=== PATIENT | male | born 1960 | race African-American/Black ===

== ENCOUNTER 2018-04-25 10:05 | Inpatient (IN) | payer OTHER ==
[2018-04-25] VITALS (14 sets, daily range): BP systolic 105–143; BP diastolic 51–79
[~2018-04-25] VITALS: Ht 175.3 cm; Wt 71.8 kg
--- NOTE | ~2018-04-25 | O ---
[facility] [place] [address] OPERATIVE REPORT Name: KAPIL GABRIEL Room #: 432[facility] M.R.#: [id number] Admission: 04/25/18 Attend Phys: Wisam Vidales MD Discharge: 05/03/18 Date of : 62 Report #: [id number] THIS REPORT FOR: //name// CC: CECY physician/PCP Wisam Vidales DATE OF SERVICE: 05/01/2018 SURGEON: Dr. Saeed Anderson. PREOPERATIVE DIAGNOSES: Dysphagia, aspiration. POSTOPERATIVE DIAGNOSES: See below. ANESTHESIA USED: See anesthesia notes. NAME OF PROCEDURE PERFORMED: 1. Esophagogastroduodenoscopy with biopsy. 2. Abdul dilation as described. INDICATION FOR PROCEDURE: As above. FINDINGS: 1. Schatzki's ring. 2. Hiatal hernia. 3. Otherwise, normal upper endoscopy. DESCRIPTION OF PROCEDURE: The risks and benefits of the procedure were explained in detail prior to monitored anesthesia. The patient was placed in the left lateral decubitus position and the tip of the Olympus video endoscope was advanced into the oropharynx, esophagus, stomach, and to the third portion of the duodenum. A close inspection of the upper gastrointestinal mucosa was obtained upon slow withdrawal of the endoscope. The duodenum was normal in appearance without evidence of erosion or ulceration. The pylorus was patent without evidence of obstruction. Gastric antrum and gastric body were normal in appearance. Retroflexion allowed close inspection of the cardia and the fundus, which revealed a GE junction approximately 35 cm from the incisors, a small hiatal hernia and a Schatzki's ring. This was mild. The distal esophagus was normal otherwise. Biopsies were obtained midesophageal to rule out eosinophilic esophagitis. Using standard technique, next, a 52-Ukrainian Abdul dilator was advanced into the distal esophagus without complication. The patient tolerated both procedures well and was discharged to recovery. IMPRESSION: 1. Schatzki's ring. 2. Hiatal hernia. [facility] [address] [place] [address] OPERATIVE REPORT Name: KAPIL GABRIEL BISHOP Room #: 432-[facility] ..#: [id number] Admission: 04/25/18 Attend Phys: Wisam Vidales MD Discharge: 05/03/18 Date of : 62 Report #: [id number]. Otherwise, normal upper endoscopy. PLAN: Proceed with swallow study via video swallow. <ELECTRONICALLY SIGNED> By: Zak Elias MD 05/03/18 1727 1110 1237 Saeed Anderson MD /nt
--- NOTE | ~2018-04-25 | PATH ---
[facility] [place] [address] PATHOLOGY RPT PROCEDURE Name: RODNEY FOREMANDuarte ALAS Room #: 432-P DIS IN M.R.#: [id number] Admission: 04/25/18 Date of : 62 Discharge: 05/03/18 Report #: [id number] Path Case #: [id number] L[facility] Accession Number: [id number] . 01 Material submitted: . ESOPHAGEAL BX . 01 Clinical history: . Pre-op diagnosis: N/V, dysphagia, hematemesis Post-op diagnosis: Esophagitis R/O eosinophilic esophagitis . 02 Diagnosis: Gastroesophageal mucosa, esophageal R/O eosinophilic esophagitis, endoscopic biopsy: - Mild esophagitis. - No increase in intraepithelial eosinophils. - Columnar gastric-type mucosa showing mild chronic inflammation. - Negative for intestinal metaplasia or dysplasia. (IUV:elina; 05/04/2018) QMS/05/04/2018 . 02 Electronically signed: . Fatmata Dickinson MD, Pathologist NPI- [id number] . 01 Gross description: . The specimen is received in formalin, labeled "Kapil Foreman, esophageal biopsy, R/O eosinophilic esophagitis". Received are three segments of pale kellogg soft tissue ranging in size from 0.3 to 0.7 cm in maximum dimensions. The specimen is submitted entirely in cassette A1. (CAA; 05/03/2018) QAC/QAC . 02 Pathologist provided ICD-10: K20.9, K29.50 . 02 CPT . 956632 Specimen Comment: A courtesy copy of this report has been sent to Specimen Comment: [phone], . Specimen Comment: Report sent to and Performed at: [address] [id number] MD Harshal Lei MD Phone: [phone] Performed at: [address] [address] [place] [address] PATHOLOGY RPT PROCEDURE Name: RODNEY FOERMANDuarte ALAS Room #: 432-P DIS IN M.R.#: [id number] Admission: 04/25/18 Date of : 62 Discharge: 05/03/18 Report #: [id number] Path Case #: [id number] [facility], [place] [id number] MD Fatmata Dickinson MD Phone: [phone]
[~2018-04-25 10:05] MED LIST: KLOR-CON 1010 MEQ PO; LANTUS100 UNIT/M SUBQ; LISINOPRIL20 MG PO; NEXIUM40 MG PO; NOVOLOG100 UNIT/M SUBQ; PHENERGAN 25 MG25 M1 PO
[2018-04-25] MEDS ORDERED: KEFLEX500 M1 PO (10:15)
[2018-04-25] MEDS ORDERED: ZANTAC 150MG T150 MG PO (10:16)
[2018-04-25] MEDS ORDERED: PROTONIX40 M1 PO (10:16)
[2018-04-25] MEDS ORDERED: FLOMAX0.4 MG PO (10:16)
[2018-04-25] MEDS ORDERED: ULTRAM 50MG TAB50 MG PO (10:17)
[2018-04-25] MEDS ORDERED: TYLENOL EXTRA500 MG PO (10:18)
[2018-04-25] MEDS ORDERED: ONDANSETRON HCL4 M2 PO (10:18)
[2018-04-25] MEDS ORDERED: VITAMIN D1000 UNI1 PO (10:19)
[2018-04-25] MEDS ORDERED: ASPIR 8181 MG PO (10:19)
[2018-04-25] MEDS ORDERED: CYCLOBENZAPRINE5 MG PO (10:20)
[2018-04-25] MEDS ORDERED: PROSCAR 5MG TABL5 MG PO (10:20)
[2018-04-25] MEDS ORDERED: LYRICA 75 MG CA75 MG PO (10:21)
[2018-04-25] MEDS ORDERED: ATORVASTATIN CA40 MG PO (10:21)
[2018-04-25 10:46] LABS: URINE BILIRUBIN NEGATIVE (Negative); URINE BLOOD NEGATIVE (Negative); URINE CLARITY CLEAR; URINE COLOR YELLOW; URINE GLUCOSE-RANDOM* 3+ (Negative); URINE KETONES 3+ (Negative); URINE LEUKOCYTES-REFLEX NEGATIVE (Negative); URINE NITRITE-REFLEX NEGATIVE (Negative); URINE PROTEIN (DIPSTICK) NEGATIVE (Negative); URINE SPECIFIC GRAVITY 1.015 (1.005-1.035); URINE UROBILINOGEN 0.2 E.U./dl (0.2-1.0)
[2018-04-25 10:57] LABS: ABSOLUTE NEUTROPHILS 12.9 thou/uL (1.4-8.2); BASOPHILS 0.7 % (0.0-2.0); EOSINOPHILS 0.1 % (0.0-3.0); HEMOGLOBIN 12.7 gm/dL (14.0-18.0); MCH 26.6 pg (26.0-34.0); MCV 85.7 fL (80.0-100.0); MONOCYTES 4.7 % (1.0-8.0); PLATELET COUNT 264 thou/uL (150-400); POLYS 85.5 % (36.0-66.0); RBC 4.78 mil/uL (4.50-6.00); RDW 17.6 % (10.5-14.5); WBC 15.1 thou/uL (4.0-11.0)
[2018-04-25 10:59] LABS: CALCIUM 9.3 mg/dL (8.5-10.1); POTASSIUM 5.9 mmol/L (3.5-5.1)
[2018-04-25 11:02] LABS: ALBUMIN 3.8 g/dL (3.4-5.0); DIRECT BILIRUBIN 0.2 mg/dL (<0.1-0.3); TOTAL BILIRUBIN 0.8 mg/dL (<0.1-1.0); TOTAL PROTEIN 7.8 g/dL (6.4-8.2)
[2018-04-25 12:32] LABS: BE(vivo) -21.3 mmol/L (-2 to +3); HCO3 6.4 mmol/L (22.0-26.0); PO2 111.9 mmHg (80.0-100.0); sO2 96.5 % (92.0-98.0)
[2018-04-25 12:33] LABS: PCO2 20.9 mmHg (35.0-45.0); pH 7.106 (7.360-7.450)
[2018-04-25 12:36] LABS: PHOSPHORUS 5.7 mg/dL (2.5-4.9)
[2018-04-25 12:37] LABS: ALBUMIN 3.9 g/dL (3.4-5.0); CALCIUM 9.5 mg/dL (8.5-10.1); PHOSPHORUS 5.6 mg/dL (2.5-4.9); POTASSIUM 5.9 mmol/L (3.5-5.1)
[2018-04-25 15:44] LABS: ALBUMIN 3.9 g/dL (3.4-5.0); CALCIUM 9.2 mg/dL (8.5-10.1); CREATININE 2.1 mg/dL (0.7-1.3); PHOSPHORUS 5.6 mg/dL (2.5-4.9); POTASSIUM 5.1 mmol/L (3.5-5.1)
[2018-04-25 19:33] LABS: ALBUMIN 3.5 g/dL (3.4-5.0); CREATININE 1.9 mg/dL (0.7-1.3); MAGNESIUM 2.2 mg/dL (1.8-2.4); PHOSPHORUS 2.7 mg/dL (2.5-4.9)
[2018-04-25 19:37] LABS: POTASSIUM 4.1 mmol/L (3.5-5.1)
[2018-04-25 23:25] LABS: ALBUMIN 3.5 g/dL (3.4-5.0); CALCIUM 8.9 mg/dL (8.5-10.1); CREATININE 1.5 mg/dL (0.7-1.3); PHOSPHORUS 3.2 mg/dL (2.5-4.9); POTASSIUM 4.3 mmol/L (3.5-5.1)
[2018-04-26] VITALS (13 sets, daily range): BP systolic 107–135; BP diastolic 51–86
[2018-04-26 05:22] LABS: ALBUMIN 3.3 g/dL (3.4-5.0); CALCIUM 8.3 mg/dL (8.5-10.1); CREATININE 1.3 mg/dL (0.7-1.3); MAGNESIUM 1.9 mg/dL (1.8-2.4); PHOSPHORUS 2.7 mg/dL (2.5-4.9); POTASSIUM 4.4 mmol/L (3.5-5.1)
[2018-04-26 05:46] LABS: HEMATOCRIT 37.9 % (42.0-52.0); HEMOGLOBIN 12.1 gm/dL (14.0-18.0); MCH 25.8 pg (26.0-34.0); MCHC 31.9 g/dL (28.0-37.0); RBC 4.68 mil/uL (4.50-6.00); RDW 16.7 % (10.5-14.5); WBC 12.8 thou/uL (4.0-11.0)
[2018-04-27] VITALS (7 sets, daily range): BP systolic 117–154; BP diastolic 72–97
[2018-04-27 06:39] LABS: ABSOLUTE NEUTROPHILS 3.4 thou/uL (1.4-8.2); BASOPHILS 1.2 % (0.0-2.0); EOSINOPHILS 0.5 % (0.0-3.0); HEMATOCRIT 34.7 % (42.0-52.0); HEMOGLOBIN 11.6 gm/dL (14.0-18.0); LYMPHOCYTES 25.6 % (24.0-44.0); MCH 26.6 pg (26.0-34.0); MCHC 33.4 g/dL (28.0-37.0); MCV 79.4 fL (80.0-100.0); MONOCYTES 9.3 % (1.0-8.0); PLATELET COUNT 207 thou/uL (150-400); POLYS 63.4 % (36.0-66.0); RBC 4.38 mil/uL (4.50-6.00); RDW 16.8 % (10.5-14.5); WBC 5.4 thou/uL (4.0-11.0)
[2018-04-27 07:01] LABS: ALBUMIN 2.9 g/dL (3.4-5.0); CALCIUM 8.5 mg/dL (8.5-10.1); CREATININE 1.1 mg/dL (0.7-1.3); MAGNESIUM 1.7 mg/dL (1.8-2.4); POTASSIUM 4.3 mmol/L (3.5-5.1); TOTAL BILIRUBIN 0.6 mg/dL (<0.1-1.0); TOTAL PROTEIN 6.2 g/dL (6.4-8.2)
[2018-04-28 04:15] VITALS: BP 150/101
[2018-04-28 07:12] VITALS: BP 131/81
[2018-04-28 09:31] LABS: HEMATOCRIT 35.8 % (42.0-52.0); HEMOGLOBIN 11.9 gm/dL (14.0-18.0); MCH 26.7 pg (26.0-34.0); MCHC 33.2 g/dL (28.0-37.0); MCV 80.5 fL (80.0-100.0); RBC 4.44 mil/uL (4.50-6.00); RDW 16.3 % (10.5-14.5); WBC 3.7 thou/uL (4.0-11.0)
[2018-04-28 09:55] LABS: CALCIUM 9.3 mg/dL (8.5-10.1); CREATININE 1.1 mg/dL (0.7-1.3); TOTAL BILIRUBIN 0.4 mg/dL (<0.1-1.0); TOTAL PROTEIN 6.4 g/dL (6.4-8.2)
[2018-04-28 15:23] VITALS: BP 131/81
[2018-04-28 15:52] VITALS: BP 91/62
[2018-04-28 20:05] VITALS: BP 119/86
[2018-04-29] VITALS (8 sets, daily range): BP systolic 72–153; BP diastolic 51–93
[2018-04-29 05:39] LABS: CALCIUM 9.4 mg/dL (8.5-10.1); CREATININE 0.9 mg/dL (0.7-1.3); MAGNESIUM 1.9 mg/dL (1.8-2.4)
[2018-04-29 05:55] LABS: POTASSIUM 5.6 mmol/L (3.5-5.1)
[2018-04-29 06:49] LABS: HEMATOCRIT 38.8 % (42.0-52.0); HEMOGLOBIN 12.8 gm/dL (14.0-18.0); MCH 26.1 pg (26.0-34.0); MCHC 33.1 g/dL (28.0-37.0); RBC 4.91 mil/uL (4.50-6.00); WBC 4.8 thou/uL (4.0-11.0)
[2018-04-29 18:08] LABS: % SATURATION 21 % (20-39); IRON 53 ug/dL (65-175); TIBC 253 ug/dL (250-450)
[2018-04-29 18:35] LABS: FOLIC ACID 12.9 ng/mL (8.6-58.9)
[2018-04-30 03:50] VITALS: BP 104/67
[2018-04-30 05:49] LABS: HEMATOCRIT 35.4 % (42.0-52.0); HEMOGLOBIN 11.9 gm/dL (14.0-18.0); MCH 26.6 pg (26.0-34.0); MCHC 33.5 g/dL (28.0-37.0); MCV 79.2 fL (80.0-100.0); RBC 4.47 mil/uL (4.50-6.00); RDW 16.2 % (10.5-14.5); WBC 4.6 thou/uL (4.0-11.0)
[2018-04-30 06:02] LABS: CREATININE 1.2 mg/dL (0.7-1.3); POTASSIUM 4.3 mmol/L (3.5-5.1)
[2018-04-30 07:05] VITALS: BP 107/74
[2018-04-30 11:32] VITALS: BP 107/74
[2018-04-30 11:51] VITALS: BP 110/71
[2018-04-30 15:16] VITALS: BP 117/87
[2018-04-30 20:05] VITALS: BP 144/88
[2018-05-01 04:44] VITALS: BP 124/75
[2018-05-01 06:35] LABS: HEMOGLOBIN 11.5 gm/dL (14.0-18.0); MCH 26.2 pg (26.0-34.0); MCHC 32.9 g/dL (28.0-37.0); MCV 79.8 fL (80.0-100.0); RBC 4.39 mil/uL (4.50-6.00); RDW 16.4 % (10.5-14.5); WBC 9.2 thou/uL (4.0-11.0)
[2018-05-01 06:44] LABS: MAGNESIUM 1.9 mg/dL (1.8-2.4); POTASSIUM 4.2 mmol/L (3.5-5.1)
[2018-05-01 07:35] VITALS: BP 100/68
[2018-05-01 15:40] VITALS: BP 141/88
[2018-05-02 06:25] LABS: CALCIUM 9.3 mg/dL (8.5-10.1); HEMOGLOBIN 11.7 gm/dL (14.0-18.0); MAGNESIUM 1.8 mg/dL (1.8-2.4); MCHC 32.6 g/dL (28.0-37.0); POTASSIUM 4.7 mmol/L (3.5-5.1); RBC 4.5 mil/uL (4.50-6.00); RDW 16.1 % (10.5-14.5); WBC 7.3 thou/uL (4.0-11.0)
[2018-05-02 07:47] VITALS: BP 113/62
[2018-05-02 16:21] VITALS: BP 110/69
[2018-05-02 20:21] VITALS: BP 108/70
[2018-05-03 04:35] VITALS: BP 149/87
[2018-05-03] MEDS ORDERED: LANTUS100 UNIT/M SUBQ (15:01)
[2018-05-03] MEDS ORDERED: LISINOPRIL5 MG PO (15:03)
== END 2018-05-03 16:48 | DRG 682 ==
LOC: ER 10:05 → EROBS 11:24 → ICU 11:24 → 4E 04-27 18:11
PROVIDERS: Emergency Medicine; Hospitalist; Internal Medicine
PROC: 0DB28ZX Excision of Middle Esophagus, Via Natural or Artificial Opening Endoscopic, Diagnostic (ICD-10-PCS; principal; 2018-05-01)
PROC: 0D738ZZ Dilation of Lower Esophagus, Via Natural or Artificial Opening Endoscopic (ICD-10-PCS; 2018-05-01)
DX: N17.9 Acute kidney failure, unspecified (principal); E10.10 Type 1 diabetes mellitus with ketoacidosis without coma; K21.9 Gastro-esophageal reflux disease without esophagitis; I10 Essential (primary) hypertension; F17.210 Nicotine dependence, cigarettes, uncomplicated; K22.2 Esophageal obstruction; K44.9 Diaphragmatic hernia without obstruction or gangrene; R13.10 Dysphagia, unspecified; E78.5 Hyperlipidemia, unspecified; D72.829 Elevated white blood cell count, unspecified; I95.9 Hypotension, unspecified; E10.40 Type 1 diabetes mellitus with diabetic neuropathy, unspecified; Z79.899 Other long term (current) drug therapy; Z79.4 Long term (current) use of insulin; Z88.0 Allergy status to penicillin; Z85.51 Personal history of malignant neoplasm of bladder; Z79.82 Long term (current) use of aspirin
CPT/HCPCS: 10078; 10783; 62110; 62900

== ENCOUNTER 2018-05-14 22:05 | Emergency (ER) | payer OTHER ==
[~2018-05-14] VITALS: Ht 175.3 cm; Wt 72.6 kg
--- NOTE | ~2018-05-14 | EKG ---
[address] [address] ELECTROCARDIOGRAM REPORT Name: KAPIL GABRIEL [facility] [id number] Admission: 05/14/18 Attend Phys: Discharge: 05/15/18 Date of : 62 Report #: [id number] THIS REPORT FOR: //name// [facility] ED Test Date: 2018-05-14 Test Time: 22:24:04 Pat Name: KAPIL GABRIEL Department: Room: Gender: M Porcelain Technician: christopher : 1960 Requested By: Farhad Choi Order Number: [id number] MD: Vinnie Valenzuela Measurements Intervals [place] Rate: 90 P: 62 CT: 154 QRS: 37 QRSD: 80 T: -7 QT: 355 QTc: 435 Interpretive Statements Sinus rhythm Nonspecific ST and T wave abnormality No previous ECG available for comparison Electronically Signed On 05-15-2018 10:13:31 CDT by Vinnie Valenzuela [email or web address] <ELECTRONICALLY SIGNED> By: Vinnie Valenzuela MD, [facility] 05/15/18 1013 2224 222 Vinnie Valenzuela MD, FACC /EPI
[~2018-05-14 22:05] MED LIST changes: +ASPIR 8181 MG PO; +ATORVASTATIN CA40 MG PO; +CYCLOBENZAPRINE5 MG PO; +FLOMAX0.4 MG PO; +KEFLEX500 M1 PO; +LISINOPRIL5 MG PO; +LYRICA 75 MG CA75 MG PO; +ONDANSETRON HCL4 M2 PO; +PROSCAR 5MG TABL5 MG PO; +PROTONIX40 M1 PO; +TYLENOL EXTRA500 MG PO; +ULTRAM 50MG TAB50 MG PO; +VITAMIN D1000 UNI1 PO; +ZANTAC 150MG T150 MG PO
[2018-05-14 23:58] LABS: ABSOLUTE NEUTROPHILS 7.4 thou/uL (1.4-8.2); EOSINOPHILS 0.5 % (0.0-3.0); HEMATOCRIT 35.1 % (42.0-52.0); HEMOGLOBIN 11.7 gm/dL (14.0-18.0); LYMPHOCYTES 11.3 % (24.0-44.0); MCH 26.4 pg (26.0-34.0); MCHC 33.3 g/dL (28.0-37.0); MCV 79.3 fL (80.0-100.0); MONOCYTES 5.4 % (1.0-8.0); PLATELET COUNT 288 thou/uL (150-400); POLYS 81.8 % (36.0-66.0); RBC 4.43 mil/uL (4.50-6.00); RDW 16.5 % (10.5-14.5); WBC 9.1 thou/uL (4.0-11.0)
[2018-05-15 00:18] LABS: ANION GAP 7 mmol/L (7-16); BUN 7 mg/dL (7-18); CALCIUM 8.5 mg/dL (8.5-10.1); CHLORIDE 105 mmol/L (98-107); CO2 25 mmol/L (21-32); CREATININE 0.9 mg/dL (0.7-1.3); GLUCOSE 124 mg/dL (74-106); POTASSIUM 3.6 mmol/L (3.5-5.1); SODIUM 137 mmol/L (136-145)
[2018-05-15 00:26] LABS: TROPONIN-I <0.06 ng/mL (<0.06)
[2018-05-15 02:05] LABS: URINE BILIRUBIN NEGATIVE (Negative); URINE BLOOD TRACE (Negative); URINE CLARITY SL CLOUDY; URINE COLOR YELLOW; URINE GLUCOSE-RANDOM* NEGATIVE (Negative); URINE KETONES NEGATIVE (Negative); URINE NITRITE-REFLEX NEGATIVE (Negative); URINE PROTEIN (DIPSTICK) NEGATIVE (Negative); URINE SPECIFIC GRAVITY 1.025 (1.005-1.035); URINE UROBILINOGEN 0.2 E.U./dl (0.2-1.0)
[2018-05-15 02:07] LABS: URINE LEUKOCYTES-REFLEX 2+ (Negative)
[2018-05-15 02:16] LABS: BACTERIA-REFLEX >30 Many /HPF (None Seen); CASTS None Seen /LPF (None Seen); SQUAMOUS None Seen /LPF (0-3); URINE WBC-REFLEX >25 Many /HPF (0-5)
[2018-05-15 02:18] LABS: CALCIUM OXALATE 0-3 Few /LPF (None Seen); URINE RBC 0-2 Rare /HPF (0-2)
[2018-05-15] MEDS ORDERED: BACTRIM DS TAB1 EACH PO (02:24)
== END 2018-05-15 03:43 | disposition home or self-care (01) ==
LOC: ER 22:05
PROVIDERS: Physician Assistant
DX: E10.649 Type 1 diabetes mellitus with hypoglycemia without coma (principal); N39.0 Urinary tract infection, site not specified; F17.210 Nicotine dependence, cigarettes, uncomplicated; I10 Essential (primary) hypertension; K21.9 Gastro-esophageal reflux disease without esophagitis; E10.40 Type 1 diabetes mellitus with diabetic neuropathy, unspecified; Z88.0 Allergy status to penicillin

== ENCOUNTER 2018-05-17 23:07 | Emergency (ER) | payer OTHER ==
[~2018-05-17] VITALS: Ht 175.3 cm; Wt 71.2 kg
[~2018-05-17 23:07] MED LIST changes: +BACTRIM DS TAB1 EACH PO
[2018-05-17 23:40] LABS: URINE BILIRUBIN NEGATIVE (Negative); URINE BLOOD NEGATIVE (Negative); URINE CLARITY CLEAR; URINE COLOR YELLOW; URINE GLUCOSE-RANDOM* 3+ (Negative); URINE KETONES NEGATIVE (Negative); URINE LEUKOCYTES-REFLEX TRACE (Negative); URINE NITRITE-REFLEX POSITIVE (Negative); URINE PROTEIN (DIPSTICK) NEGATIVE (Negative); URINE UROBILINOGEN 0.2 E.U./dl (0.2-1.0)
[2018-05-17 23:46] LABS: HEMATOCRIT 36.2 % (42.0-52.0); HEMOGLOBIN 11.8 gm/dL (14.0-18.0); MCH 26.1 pg (26.0-34.0); MCHC 32.5 g/dL (28.0-37.0); MCV 80.3 fL (80.0-100.0); RBC 4.51 mil/uL (4.50-6.00); RDW 16.7 % (10.5-14.5); WBC 4.2 thou/uL (4.0-11.0)
[2018-05-17 23:47] LABS: CALCIUM 9.5 mg/dL (8.5-10.1); CREATININE 1.2 mg/dL (0.7-1.3); POTASSIUM 3.4 mmol/L (3.5-5.1)
== END 2018-05-18 02:17 | disposition home or self-care (01) ==
LOC: ER 23:07
PROVIDERS: Emergency Medicine
DX: E11.649 Type 2 diabetes mellitus with hypoglycemia without coma (principal); F10.129 Alcohol abuse with intoxication, unspecified; T38.3X5A Adverse effect of insulin and oral hypoglycemic [antidiabetic] drugs, initial encounter; F17.210 Nicotine dependence, cigarettes, uncomplicated; I10 Essential (primary) hypertension; E11.40 Type 2 diabetes mellitus with diabetic neuropathy, unspecified; K21.9 Gastro-esophageal reflux disease without esophagitis; Z79.4 Long term (current) use of insulin; Z88.0 Allergy status to penicillin; Y90.0 Blood alcohol level of less than 20 mg/100 ml; Y92.89 Other specified places as the place of occurrence of the external cause

== ENCOUNTER 2018-07-10 19:13 | Emergency (ER) | payer OTHER ==
[~2018-07-10] VITALS: Ht 154.9 cm; Wt 73.0 kg
[2018-07-10 21:58] VITALS: BP 124/73
== END 2018-07-10 22:01 | disposition home or self-care (01) ==
LOC: ER 19:13
DX: E10.649 Type 1 diabetes mellitus with hypoglycemia without coma (principal); M79.601 Pain in right arm; M79.602 Pain in left arm; M79.604 Pain in right leg; M79.605 Pain in left leg; R51 Headache; E10.40 Type 1 diabetes mellitus with diabetic neuropathy, unspecified; I10 Essential (primary) hypertension; K21.9 Gastro-esophageal reflux disease without esophagitis; N40.0 Benign prostatic hyperplasia without lower urinary tract symptoms; G89.29 Other chronic pain; F17.210 Nicotine dependence, cigarettes, uncomplicated; Z88.0 Allergy status to penicillin; W18.30XA Fall on same level, unspecified, initial encounter; Y93.89 Activity, other specified; Y92.89 Other specified places as the place of occurrence of the external cause; Y99.8 Other external cause status

== ENCOUNTER 2018-08-16 09:34 | Emergency (ER) | payer OTHER ==
[~2018-08-16] VITALS: Ht 175.3 cm; Wt 68.0 kg
[2018-08-16] MEDS ORDERED: LYRICA 75 MG CA75 MG PO (09:51)
[2018-08-16 09:53] LABS: ABSOLUTE NEUTROPHILS 1.6 thou/uL (1.4-8.2); BASOPHILS 1.1 % (0.0-2.0); EOSINOPHILS 3.1 % (0.0-3.0); HEMATOCRIT 37.9 % (42.0-52.0); HEMOGLOBIN 12.2 gm/dL (14.0-18.0); LYMPHOCYTES 46.5 % (24.0-44.0); MCH 25.1 pg (26.0-34.0); MCHC 32.3 g/dL (28.0-37.0); MCV 77.7 fL (80.0-100.0); MONOCYTES 9.9 % (1.0-8.0); PLATELET COUNT 293 thou/uL (150-400); POLYS 39.4 % (36.0-66.0); RBC 4.87 mil/uL (4.50-6.00); RDW 16.5 % (10.5-14.5)
[2018-08-16 10:01] LABS: ANION GAP 9 mmol/L (7-16); BUN 8 mg/dL (7-18); CALCIUM 8.8 mg/dL (8.5-10.1); CHLORIDE 106 mmol/L (98-107); CO2 25 mmol/L (21-32); CREATININE 0.9 mg/dL (0.7-1.3); GLUCOSE 82 mg/dL (74-106); POTASSIUM 3.9 mmol/L (3.5-5.1); SODIUM 140 mmol/L (136-145)
[2018-08-16 10:09] LABS: ALBUMIN 3.5 g/dL (3.4-5.0); SGOT 41 U/L (15-37); SGPT 43 U/L (30-65); TOTAL BILIRUBIN 0.3 mg/dL (<0.1-1.0); TOTAL PROTEIN 7.1 g/dL (6.4-8.2); TROPONIN-I <0.06 ng/mL (<0.06)
[2018-08-16 11:07] LABS: URINE CLARITY CLEAR; URINE COLOR YELLOW
[2018-08-16 11:08] LABS: URINE SPECIFIC GRAVITY <= 1.005 (1.005-1.035)
[2018-08-16 11:09] LABS: URINE BILIRUBIN NEGATIVE (Negative); URINE BLOOD 1+ (Negative); URINE GLUCOSE-RANDOM* NEGATIVE (Negative); URINE KETONES NEGATIVE (Negative); URINE LEUKOCYTES-REFLEX 2+ (Negative); URINE NITRITE-REFLEX NEGATIVE (Negative); URINE PROTEIN (DIPSTICK) NEGATIVE (Negative); URINE UROBILINOGEN 0.2 E.U./dl (0.2-1.0)
[2018-08-16 11:13] LABS: CASTS None Seen /LPF (None Seen); CRYSTALS None Seen /LPF (None Seen); SQUAMOUS None Seen /LPF (0-3); URINE RBC 0-2 Rare /HPF (0-2); URINE WBC-REFLEX 6-15 Few /HPF (0-5)
--- NOTE | 2018-08-16 13:22 | EKG ---
[address] [address] ELECTROCARDIOGRAM REPORT Name: KAPIL GABRIEL BISHOP [facility] [id number] Admission: 08/16/18 Attend Phys: Discharge: Date of : 62 Report #: [id number] THIS REPORT FOR: //name// [facility] ED Test Date: 2018-08-16 Test Time: 09:48:40 Pat Name: KAPIL GABRIEL Department: Room: Gender: M Electric Meter Installer: LATONIA : 1960 Requested By: Lilian Langston Order Number: [id number] MD: Manuel Longoria Measurements Intervals [place] Rate: 82 P: 33 GA: 161 QRS: 18 QRSD: 80 T: 32 QT: 373 QTc: 436 Interpretive Statements Sinus rhythm Consider left ventricular hypertrophy Compared to ECG 05/14/2018 22:24:04 ST (T wave) deviation no longer present Electronically Signed On 08-16-2018 13:21:55 DIAGNOSTIC TECHNOLOGIST by Manuel Longoria [email or web address] <ELECTRONICALLY SIGNED> By: Manuel Longoria MD 08/16/18 1321 Manuel Longoria MD /VON
[2018-08-16] MEDS ORDERED: BACTRIM DS TAB1 EACH PO (15:03)
[2018-08-16 15:15] VITALS: BP 130/80
== END 2018-08-16 15:17 | disposition home or self-care (01) ==
LOC: ER 09:34
PROVIDERS: Physician Assistant
DX: M51.26 Other intervertebral disc displacement, lumbar region (principal); N39.0 Urinary tract infection, site not specified; W01.10XA Fall on same level from slipping, tripping and stumbling with subsequent striking against unspecified object, initial encounter; Y93.89 Activity, other specified; Y92.89 Other specified places as the place of occurrence of the external cause; Y99.8 Other external cause status; I10 Essential (primary) hypertension; K21.9 Gastro-esophageal reflux disease without esophagitis; E10.40 Type 1 diabetes mellitus with diabetic neuropathy, unspecified; N40.0 Benign prostatic hyperplasia without lower urinary tract symptoms; F17.210 Nicotine dependence, cigarettes, uncomplicated; Z88.0 Allergy status to penicillin

== ENCOUNTER 2018-09-14 16:10 | Emergency (ER) | payer OTHER ==
[~2018-09-14] VITALS: Ht 175.3 cm; Wt 72.6 kg
[2018-09-14 16:28] LABS: URINE BILIRUBIN NEGATIVE (Negative); URINE BLOOD 2+ (Negative); URINE CLARITY CLEAR; URINE COLOR YELLOW; URINE GLUCOSE-RANDOM* 1+ (Negative); URINE KETONES NEGATIVE (Negative); URINE LEUKOCYTES-REFLEX NEGATIVE (Negative); URINE NITRITE-REFLEX NEGATIVE (Negative); URINE PROTEIN (DIPSTICK) NEGATIVE (Negative); URINE SPECIFIC GRAVITY <= 1.005 (1.005-1.035); URINE UROBILINOGEN 0.2 E.U./dl (0.2-1.0)
[2018-09-14 16:37] LABS: BACTERIA-REFLEX None Seen /HPF (None Seen); CASTS None Seen /LPF (None Seen); CRYSTALS None Seen /LPF (None Seen); SQUAMOUS None Seen /LPF (0-3); URINE RBC 0-2 Rare /HPF (0-2); URINE WBC-REFLEX 0-5 Rare /HPF (0-5)
[2018-09-14 17:51] LABS: ABSOLUTE NEUTROPHILS 2.2 thou/uL (1.4-8.2); BASOPHILS 1.4 % (0.0-2.0); EOSINOPHILS 2.3 % (0.0-3.0); HEMATOCRIT 36.1 % (42.0-52.0); HEMOGLOBIN 12.2 gm/dL (14.0-18.0); LYMPHOCYTES 39.8 % (24.0-44.0); MCH 25.6 pg (26.0-34.0); MCHC 33.8 g/dL (28.0-37.0); MCV 75.7 fL (80.0-100.0); MONOCYTES 7.7 % (1.0-8.0); PLATELET COUNT 253 thou/uL (150-400); POLYS 48.8 % (36.0-66.0); RBC 4.76 mil/uL (4.50-6.00); RDW 16.8 % (10.5-14.5); WBC 4.5 thou/uL (4.0-11.0)
[2018-09-14 18:05] LABS: ALBUMIN 3.5 g/dL (3.4-5.0); CALCIUM 8.7 mg/dL (8.5-10.1); POTASSIUM 3.6 mmol/L (3.5-5.1); TOTAL BILIRUBIN 0.2 mg/dL (<0.1-1.0); TOTAL PROTEIN 7.1 g/dL (6.4-8.2)
[2018-09-14 20:29] VITALS: BP 132/80
== END 2018-09-14 20:29 | disposition home or self-care (01) ==
LOC: ER 16:10
PROVIDERS: Emergency Medicine
DX: E10.649 Type 1 diabetes mellitus with hypoglycemia without coma (principal); Z79.4 Long term (current) use of insulin; E10.40 Type 1 diabetes mellitus with diabetic neuropathy, unspecified; I10 Essential (primary) hypertension; K21.9 Gastro-esophageal reflux disease without esophagitis; N40.0 Benign prostatic hyperplasia without lower urinary tract symptoms; F17.210 Nicotine dependence, cigarettes, uncomplicated; Z88.0 Allergy status to penicillin

== ENCOUNTER 2018-11-15 18:01 | Emergency (ER) | payer OTHER ==
[~2018-11-15] VITALS: Ht 180.3 cm; Wt 81.7 kg
[2018-11-15 18:38] LABS: HEMATOCRIT 38.5 % (42.0-52.0); HEMOGLOBIN 12.6 gm/dL (14.0-18.0); MCH 26.1 pg (26.0-34.0); MCHC 32.9 g/dL (28.0-37.0); MCV 79.4 fL (80.0-100.0); RBC 4.84 mil/uL (4.50-6.00); RDW 17.3 % (10.5-14.5); WBC 6.8 thou/uL (4.0-11.0)
[2018-11-15 18:53] LABS: BE(vivo) -4.7 mmol/L (-2 to +3); HCO3 21.5 mmol/L (22.0-26.0); PCO2 VENOUS 44.4 mmHg (41.0-51.0); PO2 VENOUS 43.1 mmHg (35.0-45.0)
[2018-11-15 19:03] LABS: CHLORIDE 106 mmol/L (98-107); CREATININE 1.1 mg/dL (0.7-1.3); SODIUM 142 mmol/L (136-145); TROPONIN-I <0.06 ng/mL (<0.06)
[2018-11-15 19:20] LABS: ALBUMIN 4.3 g/dL (3.4-5.0); ANION GAP 13 mmol/L (7-16); BUN 13 mg/dL (7-18); CALCIUM 9.5 mg/dL (8.5-10.1); CO2 23 mmol/L (21-32); LIPASE 43 U/L (73-393); SGOT 28 U/L (15-37); SGPT 33 U/L (30-65); TOTAL BILIRUBIN 0.2 mg/dL (<0.1-1.0); TOTAL PROTEIN 7.7 g/dL (6.4-8.2)
[2018-11-15 19:22] LABS: GLUCOSE 16 mg/dL (74-106)
[2018-11-15 20:35] LABS: URINE BILIRUBIN NEGATIVE (Negative); URINE BLOOD NEGATIVE (Negative); URINE CLARITY CLEAR; URINE COLOR YELLOW; URINE GLUCOSE-RANDOM* 3+ (Negative); URINE KETONES NEGATIVE (Negative); URINE LEUKOCYTES-REFLEX NEGATIVE (Negative); URINE NITRITE-REFLEX NEGATIVE (Negative); URINE PROTEIN (DIPSTICK) NEGATIVE (Negative); URINE UROBILINOGEN 0.2 E.U./dl (0.2-1.0)
[2018-11-15 21:32] LABS: CALCIUM 8.2 mg/dL (8.5-10.1)
[2018-11-15 21:39] LABS: POTASSIUM 4.3 mmol/L (3.5-5.1)
[2018-11-16 07:30] VITALS: BP 155/76
--- NOTE | 2018-11-16 16:48 | EKG ---
[address] [address] [facility] [place] [address] ELECTROCARDIOGRAM REPORT Name: KAPIL GABRIEL [facility] [id number] ������������������ Admission: 11/15/18 ������������������ Attend Phys: Discharge: 11/16/18 ������������������ Date of : 62 Report #: [id number] ����������������������������������������������������������������� [id number] THIS REPORT FOR: //name// [facility] ED Test Date: 2018-11-15 Test Time: 18:53:16 Pat Name: KAPIL GABRIEL Department: Room: Gender: M Labor Mediator: LATONIA : 1960 Requested By: Jeniffer Boggs Order Number: [id number] MD: Vinnie Valenzuela Measurements Intervals [place] Rate: 79 P: 66 NE: 168 QRS: 47 QRSD: 113 T: 40 QT: 417 QTc: 479 Interpretive Statements Sinus rhythm Left ventricular hypertrophy Early repolarization Borderline prolonged QT interval Compared to ECG 08/16/2018 09:48:40 No significant change was found Electronically Signed On 11-16-2018 16:48:11 CDT by Vinnie Valenzuela [email or web address] ��������������������������������������������� <ELECTRONICALLY SIGNED> ���������������������������������������� By: Vinnie Valenzuela MD, [facility] ��������������������������������������������� 11/16/18 4068 1853 52 Vinnie Valenzuela MD, [facility] /EPI
== END 2018-11-16 07:30 | disposition home or self-care (01) ==
LOC: ER 18:01
PROVIDERS: Student in an Organized Health Care Education/Training Program
DX: E10.65 Type 1 diabetes mellitus with hyperglycemia (principal); I10 Essential (primary) hypertension; K21.9 Gastro-esophageal reflux disease without esophagitis; E10.40 Type 1 diabetes mellitus with diabetic neuropathy, unspecified; N40.0 Benign prostatic hyperplasia without lower urinary tract symptoms; F17.210 Nicotine dependence, cigarettes, uncomplicated; Z86.2 Personal history of diseases of the blood and blood-forming organs and certain disorders involving the immune mechanism; Z88.0 Allergy status to penicillin

== ENCOUNTER 2018-12-28 15:01 | Emergency (ER) | payer OTHER ==
[~2018-12-28] VITALS: Ht 175.3 cm; Wt 70.3 kg
[2018-12-28 16:10] VITALS: BP 112/77
[2018-12-28] MEDS ORDERED: MOBIC15 MG PO ×2 (16:10→16:14)
== END 2018-12-28 16:10 | disposition home or self-care (01) ==
LOC: ER 15:01
DX: S29.012A Strain of muscle and tendon of back wall of thorax, initial encounter (principal); S01.111D Laceration without foreign body of right eyelid and periocular area, subsequent encounter; I10 Essential (primary) hypertension; E10.40 Type 1 diabetes mellitus with diabetic neuropathy, unspecified; K21.9 Gastro-esophageal reflux disease without esophagitis; N40.0 Benign prostatic hyperplasia without lower urinary tract symptoms; F17.210 Nicotine dependence, cigarettes, uncomplicated; Z88.0 Allergy status to penicillin; X58.XXXA Exposure to other specified factors, initial encounter; Y93.89 Activity, other specified; Y92.89 Other specified places as the place of occurrence of the external cause; Y99.8 Other external cause status

== ENCOUNTER 2019-01-20 18:37 | Emergency (ER) | payer OTHER ==
[~2019-01-20] VITALS: Ht 175.3 cm; Wt 67.1 kg
[~2019-01-20 18:37] MED LIST changes: +MOBIC15 MG PO
[2019-01-20 20:00] LABS: ABSOLUTE NEUTROPHILS 2.5 thou/uL (1.4-8.2); BASOPHILS 1.8 % (0.0-2.0); EOSINOPHILS 2.2 % (0.0-3.0); HEMATOCRIT 36.8 % (42.0-52.0); HEMOGLOBIN 12.1 gm/dL (14.0-18.0); LYMPHOCYTES 40.4 % (24.0-44.0); MCV 81.9 fL (80.0-100.0); MONOCYTES 7.1 % (1.0-8.0); PLATELET COUNT 207 thou/uL (150-400); POLYS 48.5 % (36.0-66.0); RBC 4.49 mil/uL (4.50-6.00); RDW 17.6 % (10.5-14.5); WBC 5.6 thou/uL (4.0-11.0)
[2019-01-20 20:01] LABS: ANION GAP 11 mmol/L (7-16); BUN 8 mg/dL (7-18); CALCIUM 8.9 mg/dL (8.5-10.1); CHLORIDE 106 mmol/L (98-107); CO2 23 mmol/L (21-32); CREATININE 0.8 mg/dL (0.7-1.3); GLUCOSE 98 mg/dL (74-106); POTASSIUM 4.6 mmol/L (3.5-5.1); SODIUM 140 mmol/L (136-145)
[2019-01-20 20:03] LABS: BE(vivo) -2.6 mmol/L (-2 to +3); HCO3 21.2 mmol/L (22.0-26.0); PCO2 VENOUS 33.6 mmHg (41.0-51.0); PO2 VENOUS 108.7 mmHg (35.0-45.0)
[2019-01-20 20:11] LABS: ALBUMIN 3.6 g/dL (3.4-5.0); LIPASE 59 U/L (73-393); SGOT 54 U/L (15-37); SGPT 36 U/L (30-65); TOTAL BILIRUBIN 0.3 mg/dL (<0.1-1.0); TOTAL PROTEIN 7.3 g/dL (6.4-8.2); TROPONIN-I <0.06 ng/mL (<0.06)
[2019-01-20 21:14] LABS: URINE BILIRUBIN NEGATIVE (Negative); URINE BLOOD NEGATIVE (Negative); URINE CLARITY CLEAR; URINE COLOR YELLOW; URINE GLUCOSE-RANDOM* 3+ (Negative); URINE KETONES NEGATIVE (Negative); URINE LEUKOCYTES-REFLEX NEGATIVE (Negative); URINE NITRITE-REFLEX NEGATIVE (Negative); URINE PROTEIN (DIPSTICK) NEGATIVE (Negative); URINE SPECIFIC GRAVITY <= 1.005 (1.005-1.035); URINE UROBILINOGEN 0.2 E.U./dl (0.2-1.0)
[2019-01-21 01:35] VITALS: BP 151/86
--- NOTE | 2019-01-21 08:24 | EKG ---
[place] [address] [address] [facility] [employer] [place] [address] ELECTROCARDIOGRAM REPORT Name: KAPIL GABRIEL Room #: [facility] [id number] ������������������ Admission: 01/20/19 ������������������ Attend Phys: Discharge: 01/21/19 ������������������ Date of : 62 Report #: [id number] ����������������������������������������������������������������� [id number] THIS REPORT FOR: //name// [facility] ED Test Date: 2019-01-20 Test Time: 19:04:03 Pat Name: KAPIL GABRIEL Department: Room: Gender: M Filling Mixer: LYNDON : 1960 Requested By: Lilian Langston Order Number: [id number] MD: Vinnie Valenzuela Measurements Intervals [place] Rate: 89 P: 32 OR: 166 QRS: 32 QRSD: 95 T: 12 QT: 329 QTc: 401 Interpretive Statements Sinus rhythm Nonspecific T wave abnormality Compared to ECG 11/15/2018 18:53:16 Nonspecific T wave abnormality is now present QT interval shortened Electronically Signed On 01-21-2019 8:24:39 CDT by Vinnie Valenzuela [email or web address] ��������������������������������������������� <ELECTRONICALLY SIGNED> ���������������������������������������� By: Vinnie Valenzuela MD, [facility] ��������������������������������������������� 01/21/19 0824 03 03 Vinnie Valenzuela MD, [facility] /EPI
== END 2019-01-21 01:35 | disposition home or self-care (01) ==
LOC: ER 18:37
PROVIDERS: Physician Assistant
DX: F10.129 Alcohol abuse with intoxication, unspecified (principal); R11.2 Nausea with vomiting, unspecified; F17.210 Nicotine dependence, cigarettes, uncomplicated; E10.40 Type 1 diabetes mellitus with diabetic neuropathy, unspecified; I10 Essential (primary) hypertension; K21.9 Gastro-esophageal reflux disease without esophagitis; N40.0 Benign prostatic hyperplasia without lower urinary tract symptoms; Z86.2 Personal history of diseases of the blood and blood-forming organs and certain disorders involving the immune mechanism; Z88.0 Allergy status to penicillin; Y90.6 Blood alcohol level of 120-199 mg/100 ml

== ENCOUNTER 2019-02-19 15:40 | Emergency (ER) | payer OTHER ==
[~2019-02-19] VITALS: Ht 175.3 cm; Wt 67.2 kg
[2019-02-19 17:05] LABS: ABSOLUTE NEUTROPHILS 8.5 thou/uL (1.4-8.2); BASOPHILS 0.8 % (0.0-2.0); EOSINOPHILS 0.7 % (0.0-3.0); HEMATOCRIT 36.9 % (42.0-52.0); HEMOGLOBIN 12.1 gm/dL (14.0-18.0); LYMPHOCYTES 10.9 % (24.0-44.0); MCH 26.6 pg (26.0-34.0); MCHC 32.8 g/dL (28.0-37.0); MCV 81.1 fL (80.0-100.0); MONOCYTES 6.8 % (1.0-8.0); PLATELET COUNT 308 thou/uL (150-400); POLYS 80.8 % (36.0-66.0); RBC 4.54 mil/uL (4.50-6.00); RDW 15.8 % (10.5-14.5); WBC 10.5 thou/uL (4.0-11.0)
[2019-02-19 17:12] LABS: ANION GAP 8 mmol/L (7-16); BUN 9 mg/dL (7-18); CALCIUM 9.7 mg/dL (8.5-10.1); CHLORIDE 107 mmol/L (98-107); CO2 28 mmol/L (21-32); CREATININE 1.1 mg/dL (0.7-1.3); GLUCOSE 80 mg/dL (74-106); POTASSIUM 3.6 mmol/L (3.5-5.1); SODIUM 143 mmol/L (136-145)
[2019-02-19 17:23] LABS: TROPONIN-I <0.06 ng/mL (<0.06)
[2019-02-19 19:14] VITALS: BP 119/79
--- NOTE | 2019-02-20 09:54 | EKG ---
[address] [address] [address] [facility] [employer] [place] [address] ELECTROCARDIOGRAM REPORT Name: KAPIL GABRIEL [facility]: [facility] [id number] ������������������ Admission: 02/19/19 ������������������ Attend Phys: Discharge: 02/19/19 ������������������ Date of : 62 Report #: [id number] ����������������������������������������������������������������� [id number] THIS REPORT FOR: //name// [facility] ED Test Date: 2019-02-19 Test Time: 15:55:39 Pat Name: KAPIL GABRIEL Department: Room: Gender: M Coal Bagger: SEB : 1960 Requested By: Didier Medina Order Number: [id number] MD: Vinnie Valenzuela Measurements Intervals [place] Rate: 89 P: 63 IN: 149 QRS: 50 QRSD: 108 T: 64 QT: 368 QTc: 448 Interpretive Statements Sinus rhythm Nonspecific ST and T wave abnormality Compared to ECG 01/20/2019 19:04:03 No significant change was found Electronically Signed On 02-20-2019 9:54:17 CDT by Vinnie Valenzuela [email or web address] ��������������������������������������������� <ELECTRONICALLY SIGNED> ���������������������������������������� By: Vinnie Valenzuela MD, [facility] ��������������������������������������������� 02/20/19 0954 1555 1555 Vinnie Valenzuela MD, [facility] /EPI
== END 2019-02-19 19:15 | disposition home or self-care (01) ==
LOC: ER 15:40
PROVIDERS: Nurse Practitioner
DX: E10.649 Type 1 diabetes mellitus with hypoglycemia without coma (principal); F17.210 Nicotine dependence, cigarettes, uncomplicated; I10 Essential (primary) hypertension; E10.40 Type 1 diabetes mellitus with diabetic neuropathy, unspecified; K21.9 Gastro-esophageal reflux disease without esophagitis; Z86.2 Personal history of diseases of the blood and blood-forming organs and certain disorders involving the immune mechanism; Z88.0 Allergy status to penicillin

== ENCOUNTER 2019-04-21 13:24 | Emergency (ER) | payer OTHER ==
[~2019-04-21] VITALS: Ht 177.8 cm; Wt 68.0 kg
[2019-04-21] MEDS ORDERED: VITAMIN D3400 UNIT PO (13:58)
[2019-04-21] MEDS ORDERED: ARTIFICIAL TEAR15 M2 OPHTHALMIC (13:59)
[2019-04-21] MEDS ORDERED: CAL-GEST200 MG PO (14:00)
[2019-04-21] MEDS ORDERED: GLUTOSE GEL 1515 G1 PO (14:02)
[2019-04-21] MEDS ORDERED: LOPERAMIDE 2 MG2 M1 PO (14:03)
[2019-04-21] MEDS ORDERED: ROBITUSSIN100 MG/53 PO (14:04)
[2019-04-21 17:09] VITALS: BP 138/87
== END 2019-04-21 17:10 | disposition home or self-care (01) ==
LOC: ER 13:24
DX: F10.129 Alcohol abuse with intoxication, unspecified (principal); F17.210 Nicotine dependence, cigarettes, uncomplicated; I10 Essential (primary) hypertension; E10.40 Type 1 diabetes mellitus with diabetic neuropathy, unspecified; K21.9 Gastro-esophageal reflux disease without esophagitis; Z86.2 Personal history of diseases of the blood and blood-forming organs and certain disorders involving the immune mechanism; Z88.0 Allergy status to penicillin; W07.XXXA Fall from chair, initial encounter; Y93.89 Activity, other specified; Y92.89 Other specified places as the place of occurrence of the external cause; Y99.8 Other external cause status

== ENCOUNTER 2019-06-04 19:40 | Emergency (ER) | payer OTHER ==
[~2019-06-04] VITALS: Ht 175.3 cm; Wt 68.0 kg
[~2019-06-04 19:40] MED LIST changes: +ARTIFICIAL TEAR15 M2 OPHTHALMIC; +CAL-GEST200 MG PO; +GLUTOSE GEL 1515 G1 PO; +LOPERAMIDE 2 MG2 M1 PO; +ROBITUSSIN100 MG/53 PO; +VITAMIN D3400 UNIT PO
[2019-06-04 20:08] LABS: BASOPHILS 0.1 % (0.0-2.0); EOSINOPHILS 1.4 % (0.0-3.0); HEMATOCRIT 36.2 % (42.0-52.0); HEMOGLOBIN 11.7 gm/dL (14.0-18.0); LYMPHOCYTES 34.6 % (24.0-44.0); MCH 26.7 pg (26.0-34.0); MCHC 32.4 g/dL (28.0-37.0); MCV 82.4 fL (80.0-100.0); MONOCYTES 10.8 % (1.0-8.0); PLATELET COUNT 305 thou/uL (150-400); POLYS 53.1 % (36.0-66.0); WBC 5.7 thou/uL (4.0-11.0)
[2019-06-04 20:17] LABS: CREATININE 1.2 mg/dL (0.7-1.3); POTASSIUM 4.3 mmol/L (3.5-5.1)
[2019-06-04 20:24] LABS: ALBUMIN 3.8 g/dL (3.4-5.0); DIRECT BILIRUBIN 0.1 mg/dL (<0.1-0.3); TOTAL BILIRUBIN 0.4 mg/dL (<0.1-1.0); TOTAL PROTEIN 7.4 g/dL (6.4-8.2)
[2019-06-04 22:07] LABS: URINE BILIRUBIN NEGATIVE (Negative); URINE BLOOD NEGATIVE (Negative); URINE CLARITY CLEAR; URINE COLOR YELLOW; URINE GLUCOSE-RANDOM* 1+ (Negative); URINE KETONES NEGATIVE (Negative); URINE LEUKOCYTES-REFLEX NEGATIVE (Negative); URINE NITRITE-REFLEX NEGATIVE (Negative); URINE PROTEIN (DIPSTICK) NEGATIVE (Negative); URINE UROBILINOGEN 0.2 E.U./dl (0.2-1.0)
[2019-06-04 22:15] LABS: AMP/METHAMP Negative (Negative); BARBITURATES Negative (Negative); BENZODIAZEPINES Negative (Negative); COCAINE Negative (Negative); METHADONE Negative (Negative); OPIATES Negative (Negative); PCP Negative (Negative)
[2019-06-04 23:15] VITALS: BP 136/86
== END 2019-06-04 23:17 ==
LOC: ER 19:40
PROVIDERS: Emergency Medicine
DX: E10.649 Type 1 diabetes mellitus with hypoglycemia without coma (principal); T38.3X5A Adverse effect of insulin and oral hypoglycemic [antidiabetic] drugs, initial encounter; I10 Essential (primary) hypertension; E10.40 Type 1 diabetes mellitus with diabetic neuropathy, unspecified; K21.9 Gastro-esophageal reflux disease without esophagitis; Z86.2 Personal history of diseases of the blood and blood-forming organs and certain disorders involving the immune mechanism; G89.29 Other chronic pain; Z85.51 Personal history of malignant neoplasm of bladder; F17.210 Nicotine dependence, cigarettes, uncomplicated; Z88.0 Allergy status to penicillin; Y92.89 Other specified places as the place of occurrence of the external cause

== ENCOUNTER 2019-06-14 17:09 | Emergency (ER) | payer OTHER ==
[~2019-06-14] VITALS: Ht 177.8 cm; Wt 68.0 kg
--- NOTE | ~2019-06-14 | EMS ---
[address] [address] EMS Patient Care Report Name: KAPIL GABRIEL Room #: REG MAI Lucio#: [id number] Admission: 06/14/19 Attend Phys: Discharge: Date of : 62 Report #: [id number] THIS REPORT FOR: //name// Report Transmitted: 06/14/2019 17:41 EMS Care Summary [place], [place]/[facility] Incident [id number] @ 06/14/2019 16:27 Incident Location [address] Patient KAPIL GABRIEL Male, 58 Years 1960 Patient Address [id number] [place] [address] [address] [place] [address] Patient History Cancer, Unspecified,Diabetes,Hypertension,Stroke/CVA,Hyperlipidemia,Anemia,Neuropathy,Al cohol Abuse, Patient Allergies Penicillin allergy, Patient Medications Insulin, Glucagon, Pantoprazole, Omeprazole, Loratadine, Meloxicam, Atorvastatin, Lipitor, Tamsulosin, Norvasc, Lyrica, Tramadol, Lisinopril, Cyclobenzaprine, Novolog, Flomax, Coreg, Chief Complaint hyperglycemia Disposition Transported No Lights/[place] Dispatch Reason Falls Transported To [address] [address] EMS Patient Care Report Name: KAPIL GABRIEL Room #: REG MAI Lucio#: [id number] Admission: 06/14/19 Attend Phys: Discharge: Date of : 62 Report #: [id number] Narrative pr staff stated they discovered pts bl/gl was high at around 1500. pr staff reports pt also has been drinking a large amount of alcohol. pt found sitting upright and alert in bed. pt a&ox4 gcs 15 and did not present in apparent distress. pt stated he has no complaints but that he has been drinking a lot. pt stated he had two malt liquor cans and four "glasses" of rum. pt stated he did not want to be transported to the hospital by ambulance. ems checked pts bl/gl revealing "hi". pt was advised with his hyperglycemia that is in his best interest to be seen at hospital. pt agreed to be transported to [facility]. pt walked with assistance to ems cot. pt was transferred onto ems cot and was secured in a semi fowlers position without incident. pt was loaded into ambulance. pt was transported non emergent. transport was uneventful and pt rested on ems cot. pt care was transferred to appropriate staff and ems goes back in service. Initial Vitals @16:51P: 88,R: 20,BP: 126/80,Pain: 0/10,GCS: 15,Glucose: -2,SpO2: 98,Revised Trauma: 12, @17:04P: 80,R: 20,BP: 128/80,GCS: 15,SpO2: 98,Revised Trauma: 12, Assessments @16:44MENTAL:No Abnormalities,SKIN:No Abnormalities,HEENT:Head/Face: No Abnormalities,Eyes: No Abnormalities,Neck/Airway: No Abnormalities,LUNG SOUNDS:General: No Abnormalities,Left Upper: No Abnormalities,Right Upper: No Abnormalities,Left Lower: No Abnormalities,Right Lower: No Abnormalities,ABDOMEN:General: No Abnormalities,Left Upper: No Abnormalities,Right Upper: No Abnormalities,Left Lower: No Abnormalities,Right Lower: No Abnormalities,PELVIS//GI:No Abnormalities,EXTREMITIES:Left Arm: No Abnormalities,Right Arm: No Abnormalities,Left Leg: No Abnormalities,Right Leg: No Abnormalities,PULSE:NEURO:No Abnormalities,@17:02MENTAL:No Abnormalities,SKIN:No Abnormalities,HEENT:Head/Face: No Abnormalities,Eyes: No Abnormalities,Neck/Airway: No Abnormalities,LUNG SOUNDS:General: No Abnormalities,Left Upper: No Abnormalities,Right Upper: No Abnormalities,Left Lower: No Abnormalities,Right Lower: No Abnormalities,ABDOMEN:General: No Abnormalities,Left Upper: No Abnormalities,Right Upper: No Abnormalities,Left Lower: No Abnormalities,Right Lower: No Abnormalities,PELVIS//GI:No Abnormalities,EXTREMITIES:Left Arm: No Abnormalities,Right Arm: No Abnormalities,Left Leg: No Abnormalities,Right Leg: No Abnormalities,PULSE:NEURO:No Abnormalities, Impression Diabetic Hyperglycemia Procedures @16:44ALS AssessmentResponse: UnchangedcceedMethod[facility] [address] [place] [address] EMS Patient Care Report Name: NERYKAPIL Room #: REG Naveed#: [id number] Admission: 06/14/19 Attend Phys: Discharge: Date of : 62 Report #: [id number] Timeline 16:26,Call Received 16:26,Dispatch Notified 16:27,Dispatched 16:29,En Route 16:43,On Scene 16:44,At Patient 16:44,ALS Assessment,Response: UnchangedSucceeded, 16:51,BP: 126/80 M,PULSE: 88,RR: 20 R,SPO2: 98 Ox,ETCO2: ,BG: -2,PAIN: 0,GCS: 15, 16:54,Depart Scene 17:04,BP: 128/80 M,PULSE: 80,RR: 20 R,SPO2: 98 Ox,ETCO2: ,BG: ,PAIN: ,GCS: 15, 17:06,At Destination 17:23,Call Closed Disclaimer v1.1 Copyright 2019 [employer] This EMS Care Summary contains data elements from the applicable legal record (which may be displayed differently). It is designed to provide pertinent information for the following purposes: continuity of care, clinical quality, and state data reporting. The complete legal record is available to ED staff and administrators of the receiving hospital in [employer]'s Patient Tracker. All data is provided "as is."
[2019-06-14 18:17] LABS: ABSOLUTE NEUTROPHILS 2.6 thou/uL (1.4-8.2); BASOPHILS 1.2 % (0.0-2.0); EOSINOPHILS 1.8 % (0.0-3.0); HEMATOCRIT 34.1 % (42.0-52.0); HEMOGLOBIN 11.1 gm/dL (14.0-18.0); LYMPHOCYTES 32.3 % (24.0-44.0); MCH 26.8 pg (26.0-34.0); MCHC 32.6 g/dL (28.0-37.0); MCV 82.2 fL (80.0-100.0); MONOCYTES 10.3 % (1.0-8.0); PLATELET COUNT 242 thou/uL (150-400); POLYS 54.4 % (36.0-66.0); RBC 4.14 mil/uL (4.50-6.00); RDW 16.1 % (10.5-14.5); WBC 4.8 thou/uL (4.0-11.0)
[2019-06-14 18:22] LABS: ANION GAP 13 mmol/L (7-16); BUN 15 mg/dL (7-18); CALCIUM 9.1 mg/dL (8.5-10.1); CHLORIDE 98 mmol/L (98-107); CO2 23 mmol/L (21-32); CREATININE 1.2 mg/dL (0.7-1.3); GLUCOSE 482 mg/dL (74-106); POTASSIUM 4.2 mmol/L (3.5-5.1); SODIUM 134 mmol/L (136-145)
[2019-06-14 18:28] LABS: ALBUMIN 3.4 g/dL (3.4-5.0); DIRECT BILIRUBIN < 0.1 mg/dL (<0.1-0.3); SGOT 13 U/L (15-37); SGPT 15 U/L (30-65); TOTAL BILIRUBIN 0.2 mg/dL (<0.1-1.0); TOTAL PROTEIN 7.1 g/dL (6.4-8.2)
[2019-06-14 19:00] VITALS: BP 118/72
[2019-06-14 19:00] LABS: URINE BILIRUBIN NEGATIVE (Negative); URINE BLOOD NEGATIVE (Negative); URINE CLARITY CLEAR; URINE COLOR YELLOW; URINE GLUCOSE-RANDOM* 3+ (Negative); URINE KETONES NEGATIVE (Negative); URINE LEUKOCYTES-REFLEX NEGATIVE (Negative); URINE NITRITE-REFLEX NEGATIVE (Negative); URINE PROTEIN (DIPSTICK) NEGATIVE (Negative); URINE SPECIFIC GRAVITY <= 1.005 (1.005-1.035); URINE UROBILINOGEN 0.2 E.U./dl (0.2-1.0)
== END 2019-06-14 19:57 | disposition home or self-care (01) ==
LOC: ER 17:09
PROVIDERS: Emergency Medicine
DX: E10.9 Type 1 diabetes mellitus without complications (principal); I10 Essential (primary) hypertension; E10.40 Type 1 diabetes mellitus with diabetic neuropathy, unspecified; K21.9 Gastro-esophageal reflux disease without esophagitis; F17.210 Nicotine dependence, cigarettes, uncomplicated; Z79.4 Long term (current) use of insulin; Z86.2 Personal history of diseases of the blood and blood-forming organs and certain disorders involving the immune mechanism; Z88.0 Allergy status to penicillin

== ENCOUNTER 2019-07-02 00:02 | Inpatient (IN) | payer OTHER ==
[2019-07-02] VITALS (7 sets, daily range): BP systolic 124–152; BP diastolic 72–95
[~2019-07-02] VITALS: Ht 175.3 cm; Wt 65.3 kg
[2019-07-02 00:19] LABS: ABSOLUTE NEUTROPHILS 3.4 thou/uL (1.4-8.2); BASOPHILS 0.2 % (0.0-2.0); EOSINOPHILS 0.2 % (0.0-3.0); HEMOGLOBIN 12.7 gm/dL (14.0-18.0); LYMPHOCYTES 14.8 % (24.0-44.0); MCH 26.2 pg (26.0-34.0); MCHC 31.7 g/dL (28.0-37.0); MCV 82.6 fL (80.0-100.0); MONOCYTES 5.3 % (1.0-8.0); PLATELET COUNT 288 thou/uL (150-400); POLYS 79.5 % (36.0-66.0); RBC 4.84 mil/uL (4.50-6.00); RDW 15.8 % (10.5-14.5); WBC 4.3 thou/uL (4.0-11.0)
[2019-07-02 00:38] LABS: ALBUMIN 4.4 g/dL (3.4-5.0); ANION GAP 25 mmol/L (7-16); BUN 26 mg/dL (7-18); CALCIUM 10.3 mg/dL (8.5-10.1); CHLORIDE 93 mmol/L (98-107); CO2 17 mmol/L (21-32); CREATININE 1.6 mg/dL (0.7-1.3); LIPASE 199 U/L (73-393); MAGNESIUM 2.2 mg/dL (1.8-2.4); PHOSPHORUS 4.9 mg/dL (2.5-4.9); POTASSIUM 4.3 mmol/L (3.5-5.1); SGOT 18 U/L (15-37); SGPT 23 U/L (30-65); SODIUM 135 mmol/L (136-145); TOTAL BILIRUBIN 0.7 mg/dL (<0.1-1.0); TOTAL PROTEIN 8.5 g/dL (6.4-8.2); TROPONIN-I <0.06 ng/mL (<0.06)
[2019-07-02 00:42] LABS: GLUCOSE 514 mg/dL (74-106)
[2019-07-02] MEDS ORDERED: HUMALOG100 UNIT/1 SUBQ (00:52)
[2019-07-02] MEDS ORDERED: LANTUS SUBQ (00:53)
[2019-07-02] MEDS ORDERED: LYRICA 75 MG CA75 MG PO (00:58)
[2019-07-02 02:14] LABS: URINE BILIRUBIN NEGATIVE (Negative); URINE BLOOD NEGATIVE (Negative); URINE CLARITY CLEAR; URINE COLOR YELLOW; URINE GLUCOSE-RANDOM* 3+ (Negative); URINE KETONES 3+ (Negative); URINE LEUKOCYTES-REFLEX NEGATIVE (Negative); URINE NITRITE-REFLEX NEGATIVE (Negative); URINE PROTEIN (DIPSTICK) NEGATIVE (Negative); URINE SPECIFIC GRAVITY 1.015 (1.005-1.035); URINE UROBILINOGEN 0.2 E.U./dl (0.2-1.0)
[2019-07-02 02:31] LABS: AMP/METHAMP Negative (Negative); BARBITURATES Negative (Negative); BENZODIAZEPINES Negative (Negative); COCAINE POSITIVE (Negative); METHADONE Negative (Negative); OPIATES Negative (Negative); PCP Negative (Negative)
[2019-07-02 04:48] LABS: CREATININE 1.2 mg/dL (0.7-1.3); MAGNESIUM 2.2 mg/dL (1.8-2.4); POTASSIUM 4.2 mmol/L (3.5-5.1)
--- NOTE | 2019-07-02 07:56 | NUR ---
REPORT FROM BENNIE LIU FROM ED PT BEING ADMITTED TO ROOM 454 FOR DKA. BROUGHT UP VIA CART TRANSFERRED SELF TO BED ORIENTED TO ROOM CALL LIGHT AND POC.
--- NOTE | 2019-07-02 17:38 | NUR ---
Received awake on bed. Due medications given as prescribed, able to swallow meds w/o difficulty. On room air. On blood sugar monitoring- taken and recorded- with sliding scale insulin, given as prescribed. On carb controlled diet- tolerating well; no nausea, no vomiting and no abdominal pain noted. Vital signs stable. With SL at L AC and R UA- intact and flushing well. Admission care continued, admission assessment, and history done. Assisted in ADLs. Pt complained of heart burn- Dr Dubon informed and prescribed Mylanta- given as prescribed. Pt to be referred to [facility]- has been kicked out from [place] recently and nowhere to go upon discharge. Falls risk- falls bundle in place. Able to use the urinal to pass urine. Pt's insulin omitted due to low blood sugar- noted on eMAR.
--- NOTE | 2019-07-02 23:11 | NUR ---
BLOOD GLUCOSE AT 2100 WAS 57, GAVE JUICE AND A PEANUT BUTTER AND A RENE CRAKER PACK. HE DID NOT EAT HIS DINNER EARLIER TONIGHT. PER PT REPORT. BLOOD GLUCOSE RECHECKED AT 2300.
--- NOTE | 2019-07-03 04:54 | NUR ---
RESTING QUIETLY TONIGHT. DENIES PAIN. CONTINUES ON IV FLUIDS. URINE IS DARK IN COLOR. ENCOURGAED PO FLUID INTAKE. COOPERATIVE AND QUIET. NO CONCERNS VOICED. CARE PLAN REVIEWED.
[2019-07-03 05:17] LABS: ALBUMIN 2.9 g/dL (3.4-5.0); CALCIUM 8.3 mg/dL (8.5-10.1); CREATININE 0.8 mg/dL (0.7-1.3); TOTAL BILIRUBIN 0.3 mg/dL (<0.1-1.0); TOTAL PROTEIN 5.8 g/dL (6.4-8.2)
[2019-07-03 05:25] LABS: POTASSIUM 3.2 mmol/L (3.5-5.1)
--- NOTE | 2019-07-03 05:48 | NUR ---
blood glucose 30 after eating yogurt and glucose gel. denies hunger, has no signs symtpoms of low blood glucose.
--- NOTE | 2019-07-03 08:00 | NUR ---
PT RESTING WITH EYES CLOSED AND AWAKEN WITH VERBAL STIMULI. PT LUNGS CLEAR. PT BLOOD SUGAR 30 AND WAS GIVEN GLUCOSE GEL. PT SUGAR WENT UP TO 128. PT DENIES PAIN. PT WANTING TO TALK TO MORTAR MIXER OPERATOR ABOUT GETTING A FREE STYLE MONITOR FOR BLOOD SUGAR. PT UP WITH ASSIST. PT TOLERATING DIET.
[2019-07-03 08:11] VITALS: BP 141/85
--- NOTE | 2019-07-03 13:43 | NUR ---
ADM TRAMADOL 50MG PO FOR PAIN TO THROAT OF 7 ON 1-10 SCALE. FEELS SHARP WITH SWALLOWING. PT STATED COULD BE FROM THROWING UP AND THURSDAY.
[2019-07-03 16:12] VITALS: BP 136/81
--- NOTE | 2019-07-03 17:00 | NUR ---
PT BLOOD SUGAR IS 60. PT NOT EATING VERY WELL DUE TO THROAT IS SORE. PT ABLE TO SWALLOW MEDICATION OK. GAVE PT APPLE JUICE AND SOME GRAHMN CRACKERS. PT HAS NO S/S OF LOW BLOOD SUGAR.
[2019-07-03 19:24] VITALS: BP 139/81
--- NOTE | 2019-07-04 03:48 | NUR ---
PT CARE ASSUMED AT 1900 WITH PT IN BED.PT IS A/O X4.PT IS ACCUCHECK ACHS.BLOOD SUGAR HS WAS 227 AND INSULIN ADMINISTERED PER SLIDING SCALE.PT COMPLAINT OF PAIN IN THROAT AND WAS GIVEN TRAMADOL.PT DENIES N/V.CONTINUE TO MONITOR PT TILL EOS
[2019-07-04 05:21] LABS: ALBUMIN 2.9 g/dL (3.4-5.0); CALCIUM 8.4 mg/dL (8.5-10.1); CREATININE 0.8 mg/dL (0.7-1.3); POTASSIUM 3.4 mmol/L (3.5-5.1); TOTAL BILIRUBIN 0.4 mg/dL (<0.1-1.0); TOTAL PROTEIN 5.8 g/dL (6.4-8.2)
--- NOTE | 2019-07-04 07:44 | EKG ---
[address] [place] [address] ELECTROCARDIOGRAM REPORT Name: KAPIL GABRIEL Room #: 454-P ADM IN M.R.#: [id number] Admission: 07/02/19 Attend Phys: Wisam Vidales MD Discharge: Date of : 62 Report #: [id number] THIS REPORT FOR: //name// [facility] ED Test Date: 2019-07-02 Test Time: 00:36:06 Pat Name: KAPIL GABRIEL Department: Room: [facility] Gender: M Platform Stapler: JUAN LUIS : 1960 Requested By: Dandre Wilkins Order Number: [id number] MD: Vinnie Valenzuela Measurements Intervals [place] Rate: 97 P: 67 OR: 135 QRS: 50 QRSD: 79 T: -8 QT: 352 QTc: 447 Interpretive Statements Sinus rhythm Biatrial enlargement Left ventricular hypertrophy Compared to ECG 02/19/2019 15:55:39 No significant change was found Electronically Signed On 07-04-2019 7:44:40 GATHERING MACHINE FEEDER by Vinnei Valenzuela [email or web address] <ELECTRONICALLY SIGNED> By: Vinnie Valenzuela MD, FAC 07/04/19 0744 0036 0036 Vinnie Valenzuela MD, [facility] /EPI
[2019-07-04 08:12] VITALS: BP 147/89
[2019-07-04] MEDS ORDERED: LIPITOR40 MG PO (09:17)
[2019-07-04] MEDS ORDERED: FLOMAX0.4 MG PO (09:17)
[2019-07-04] MEDS ORDERED: PROTONIX40 M1 PO (09:18)
[2019-07-04] MEDS ORDERED: LYRICA 75 MG CA75 MG PO (09:18)
[2019-07-04] MEDS ORDERED: HUMALOG100 UNIT/1 SUBQ (09:19)
[2019-07-04] MEDS ORDERED: LANTUS SUBQ ×2 (09:19→09:23)
[2019-07-04] MEDS ORDERED: REGLAN 5 MG TAB5 MG PO (09:19)
[2019-07-04] MEDS ORDERED: PROSCAR 5MG TABL5 MG PO (09:20)
--- NOTE | 2019-07-04 14:11 | NUR ---
PT ADMITTED RELATED TO DKA. CM REVIEWED CHART AND SPOKE WITH CARE TEAM. CM MET WITH PT AT BEDSIDE THIS DAY. PT INDICATED THAT HE HAD BEEN EVICTED FROM [facility]. PT INDICATED THAT HE HAD BEEN AT [facility] PRIOR TO RECENT HOSPITALIZATIONS. CM CALLED VAL AT [facility] AND IT WAS INDICATED THAT PT HAD INFACT BEEN EVICTED AND THAT THE LOCKS ON THE APARTMENT HAD BEEN CHANGED 06/26. THEY INDICATED THAT THEY WOULD LIKELY CALL THE POLICE SHOULD PT RETURN TO THE CAMPUS. CM MET WITH PT AND ASKED WHERE HE PLANNED TO GO UPON DC AND HE INDICATED HE DIDN'T KNOW. CM INDICATED THAT WE COULD ARRANGE FOR HIM TO GO TO A HOMELESS HALF-WAY UPON DC. PT INDICATED HE HAD REACHED OUT TO HIS MOTHER AND HE INDICATED HE WAS GOING TO GO STAY WITH HER FOR A TIME UPON DC. CM TOOK ALL PT'S MEDICATIONS DOWN TO PHARMACY TO FILL FOR DC HE DIDN'T HAVE ANY MEDS MESSENGER COPY. PT CAN'T HAVE THE PROTONIX FILLED UNTIL 07/22, LYRICA CAN'T BE FILLED UNTIL 07/05, AND FLOMAX UNTIL 07/08. CM TO VOUCHER $23.39 FOR THE PEN NEEDLES (16.89) AND PT'S CO PAYS (6.50). PT INDICATED HE MOTHER WOULD BE PROVIDING HIM TRANSPORT HOME.
[2019-07-04 14:42] VITALS: BP 112/81
[2019-07-04] MEDS ORDERED: GLUCOMETER ×2 (16:46→16:50)
--- NOTE | 2019-07-04 17:08 | NUR ---
CM VISITED WITH KAPIL, AND BEDSIDE NURSE AT BEDSIDE RT DM SUPPLIES WILL NOT BE READY TILL TOMORROW AND WOULD LIKE FOR HIM TO STAY SO CAN BE SAFE DC FOR PT AND HE BE ABLE TO CHECK BS, AND GIVE INSULIN IF NEEDED, AFTER DC FROM HOSPITAL. " OH I TOLD YOU, YOU WOULD BE STAYING AT LEAST ONE MORE NIGHT AND THAT IS FINE BY US, I WOULD HAVE WORRIED TO MUCH IF HE WAS DC WITH OUT HIS SUPPLIES AND MEDICATION HE NEEDS"/KAPIL AND FAMILY. WILL CONT FOLLOWING NEEDED FOR DC NEEDS. BENCH INSPECTOR NOTIFIED
[2019-07-04 19:06] VITALS: BP 121/80
--- NOTE | 2019-07-04 20:42 | NUR ---
PATIENT REFUSED INSULIN FOR PORTION OF SHIFT, REPORTS THAT HIS BLOOD GLUCOSE DROPS TOO LOW. ALLOWED SOME INSULIN TO BE GIVEN. AOX4, FALL PRECAUTIONS IN PLACE. USES URINAL TO VOID.
--- NOTE | 2019-07-05 04:58 | NUR ---
ASSUMED CARE AROUND 1914. AXOX3. CALL APPROPRIATELY. VSS. NO S/S ACUTE DISTRESS NOTED OR REPORTED AT THIS TIME. WILL CONT TO MONITOR FOR ANY CHANGES IN CONDITION.
[2019-07-05 07:18] VITALS: BP 117/78
[2019-07-05 11:09] VITALS: BP 117/78
--- NOTE | 2019-07-05 11:25 | NUR ---
Received awake on bed. Due medications given as prescribed, able to swallow meds w/o difficulty. A+Ox3-4. On room air. On blood sugar monitoring- taken and recorded, with sliding scale insulin- given as prescribed. On carb controlled diet, tolerating well; no nausea, no vomiting and no abdominal pain. On stand by assist. Vital signs stable. With SL at L AC, R UA- intact and flushing well. Pt for discharge today, to claim medication from O/P pharmacy- vouchers given by ROSAURA. As per CM, pt needs prescription for glucometer, CM already messaged Dr Dubon then will claim glucometer from pharmacy. Discharge orders made by Dr Dubon. Pt to be fetched by his mom, instructed him not to call them yet until we have glucometer and meds ready.
== END 2019-07-05 15:47 | disposition home or self-care (01) | DRG 638 ==
LOC: ER 00:02 → 4W 01:37 → EROBS 01:37 → 4W 05:59 → ENTRNSPT 07-05 15:00 → EDTRNSPTSTS 07-05 15:11 → 4W 07-05 15:47
PROVIDERS: Emergency Medicine; Nurse Practitioner Acute Care; ADMIT Hospitalist
DX: E10.10 Type 1 diabetes mellitus with ketoacidosis without coma (principal); N17.9 Acute kidney failure, unspecified; I10 Essential (primary) hypertension; E10.40 Type 1 diabetes mellitus with diabetic neuropathy, unspecified; K21.9 Gastro-esophageal reflux disease without esophagitis; N40.0 Benign prostatic hyperplasia without lower urinary tract symptoms; F17.210 Nicotine dependence, cigarettes, uncomplicated; F14.10 Cocaine abuse, uncomplicated; F10.10 Alcohol abuse, uncomplicated; Z71.51 Drug abuse counseling and surveillance of drug abuser; Z23 Encounter for immunization; Z88.0 Allergy status to penicillin; Z79.899 Other long term (current) drug therapy
CPT/HCPCS: 10040; 10045